=== PATIENT | male | born 1995 | race Caucasian/White ===

== ENCOUNTER 2019-03-18 20:27 | Emergency (ER) | payer OTHER ==
[2019-03-18] MEDS ORDERED: Triple Antibiotic Oint 1 GM Packet ONE (20:41)
[2019-03-18] MEDS ORDERED: Adacel (T-DAP) 0.5 ML SYRINGE ONE (21:01)
[2019-03-18] MEDS ORDERED: Acetaminophen 500 MG TAB ONE (21:25)
--- NOTE | 2019-03-18 21:29 | RAD ---
RIGHT WRIST THREE VIEWS: 03/18/19 HISTORY: Injury, right wrist pain. FINDINGS/IMPRESSION: No acute fracture or dislocation is seen. If symptoms do not improve, follow-up exam should be obtained in 7-10 days. POS: [facility]
--- NOTE | 2019-03-18 21:57 | CT ---
CT BRAIN NONCONTRAST: 03/18/19 HISTORY: 23-year-old male status post acute head trauma. FINDINGS: There is no midline shift or any other mass effect. There is no evidence of acute intracranial hemor rhage, large cortical infarct, obstructive hydrocephalus, or extraaxial fluid collection. The calvar ium is intact. IMPRESSION: No acute intracranial findings. jn [] POS: CET
== END 2019-03-18 22:32 | disposition home or self-care (01) ==
LOC: ERS 20:27
DX: S21.211A Laceration without foreign body of right back wall of thorax without penetration into thoracic cavity, initial encounter (principal); S80.212A Abrasion, left knee, initial encounter; S40.212A Abrasion of left shoulder, initial encounter; S00.01XA Abrasion of scalp, initial encounter; S00.81XA Abrasion of other part of head, initial encounter; S00.212A Abrasion of left eyelid and periocular area, initial encounter; V49.9XXA Car occupant (driver) (passenger) injured in unspecified traffic accident, initial encounter
CPT/HCPCS: 12002; 70450; 90471; 90715